=== PATIENT | male | born 1990 | race Caucasian/White ===

== ENCOUNTER 2018-01-23 21:47 | Emergency (ER) | payer BC ==
[~2018-01-23] VITALS: Ht 188 cm; Wt 105.2 kg
[~2018-01-23 21:47] MED LIST: ACET325T21 PO; ALPR0.254 PO; BISA10SU65 PR; DOCU50LI24 PO; ENOX40SY4 SQ; FOLI-17 NG; FURO10VI37 IV; IBUP-1484 PO; IPRA3AMP INLINE; LABE5VIA13 IV; LACT20SO13 NG; LORA2VIA4 IVPush; MERO1VIA15 IV; METH10OR3 PO; METO50TA82 PO; ONDA4VIA4 IVP; OXYC1TAB7 PO; PANT40VI IVPush; POTA20LI PO; QUET25TA PO; SENN8.8S4 NG; THIA100T6 PO; [UNRECOGNIZED DRUG - CODE] PO/NG
[2018-01-23 21:51] VITALS: BP 155/94
[2018-01-23] MEDS ORDERED: HYDROcodone/APAP 5/325 TABLET ONE (22:17)
[2018-01-23] MEDS ORDERED: HYDROcodone/APAP 5/325 TABLET PO PRN (22:30)
== END 2018-01-23 22:51 | disposition home or self-care (01) ==
LOC: ED 22:17
DX: S42.022A Displaced fracture of shaft of left clavicle, initial encounter for closed fracture (principal); W19.XXXA Unspecified fall, initial encounter; Y93.64 Activity, baseball; Y99.8 Other external cause status; Y92.89 Other specified places as the place of occurrence of the external cause
CPT/HCPCS: 29105; 99284

== ENCOUNTER 2018-01-29 05:48 | Day surgery (SDC) | payer BC ==
[~2018-01-29] VITALS: Ht 188 cm; Wt 104.0 kg
[2018-01-29] MEDS ORDERED: BUPIVACAINE/PF-EPI 0.5% 1:200K ONE (06:51)
[2018-01-29] MEDS ORDERED: BUPIVACAINE/PF 0.5% ONE (06:58)
[2018-01-29 06:59] VITALS: BP 144/82
[2018-01-29] MEDS ORDERED: DEXAMETHASONE 4 MG/ML, 1ML ONE ×2 (06:59)
[2018-01-29] MEDS ORDERED: PROPOFOL 10 MG/ML, 20ML ONE (06:59)
[2018-01-29] MEDS ORDERED: CEFAZOLIN 1,000 MG ONE ×2 (06:59)
[2018-01-29] MEDS ORDERED: MIDAZOLAM 1 MG/ML, 2ML ONE (07:00)
[2018-01-29] MEDS ORDERED: FENTANYL PF 250 MCG/5ML ONE (07:00)
[2018-01-29] MEDS ORDERED: OxyconTIN ER 10 MG TAB.ER ONE (07:03)
[2018-01-29] MEDS ORDERED: ACETAMINOPHEN 500 MG TABLET ONE (07:03)
[2018-01-29] MEDS ORDERED: GABAPENTIN 300 MG CAPSULE ONE (07:04)
[2018-01-29] MEDS ORDERED: OXYcodone IR 5MG TABLET ONE (07:06)
[2018-01-29] MEDS ORDERED: LACTATED RINGERS 1,000 ML IV SCH (07:08)
[2018-01-29] MEDS ORDERED: TRAM50TA2 PO (07:10)
[2018-01-29] MEDS ORDERED: MEPERIDINE/PF 25MG/0.5ML IVPush PRN (07:30)
[2018-01-29] MEDS ORDERED: ONDANSETRON 2MG/ML, 2ML IVPush PRN (07:30)
[2018-01-29] MEDS ORDERED: morphine SULFATE 10 MG/ML, 1ML IV PRN (07:30)
[2018-01-29] MEDS ORDERED: PROMETHAZINE 25 MG/ML, 1ML IV PRN (07:30)
[2018-01-29] MEDS ORDERED: LABETALOL 5MG/ML, 20ML IV PRN (07:30)
[2018-01-29] MEDS ORDERED: EPHEDRINE 50 MG/ML, 1ML IVPush PRN (07:30)
[2018-01-29] MEDS ORDERED: ALBUTEROL SULFATE 2.5 MG/3 ML NPPB PRN (07:30)
[2018-01-29] MEDS ORDERED: hydrALAzine 20 MG/ML, 1ML IV PRN (07:30)
[2018-01-29] MEDS ORDERED: METOPROLOL 1 MG/ML, 5ML IV PRN (07:30)
[2018-01-29] MEDS ORDERED: OXYcodone 5 MG/5 ML ORAL.SOL UDC PO PRN (07:30)
[2018-01-29] MEDS ORDERED: FENTANYL PF 100 MCG/2ML IV PRN (07:30)
[2018-01-29] MEDS ORDERED: ONDANSETRON ODT 8 MG ONE ×2 (07:45)
== END 2018-01-29 09:25 | disposition home or self-care (01) ==
LOC: OUT 05:48
PROVIDERS: ATTEND Orthopaedic Surgery
DX: S42.002A Fracture of unspecified part of left clavicle, initial encounter for closed fracture (principal); X58.XXXA Exposure to other specified factors, initial encounter; Z88.1 Allergy status to other antibiotic agents; Z88.0 Allergy status to penicillin; Y93.89 Activity, other specified; Y92.89 Other specified places as the place of occurrence of the external cause; Y99.8 Other external cause status
CPT/HCPCS: 23515; 73000; 76000; C1713; J0690; J1100; J2250; J2704; J3010; J3490; J7120; Q0162

== ENCOUNTER 2020-05-20 09:53 | Day surgery (SDC) | payer BC ==
[~2020-05-20] VITALS: Ht 188 cm; Wt 105.9 kg
[~2020-05-20 09:53] MED LIST changes: +ACET-2274 PO; -ACET325T21 PO; -IBUP-1484 PO; +IBUP-1902 PO; -IPRA3AMP INLINE; +IPRA3AMP30 INLINE; -LORA2VIA4 IVPush; +LORA2VIA6 IVPush; -MERO1VIA15 IV; +MERO1VIA24 IV; +METH10OR12 PO; -METH10OR3 PO; -ONDA4VIA4 IVP; +ONDA4VIA60 IVP; -POTA20LI PO; +POTA20LI2 PO; -QUET25TA PO; +QUET25TA7 PO; -SENN8.8S4 NG; +SENN8.8S5 NG; -THIA100T6 PO; +THIA100T67 PO; +TRAM50TA2 PO
[2020-05-20] MEDS ORDERED: LACTATED RINGERS 1,000 ML IV SCH (10:22)
[2020-05-20] MEDS ORDERED: CHLORHEXIDINE 15 ML UDC MM ONE (10:30)
[2020-05-20 10:36] VITALS: BP 145/99
[2020-05-20] MEDS ORDERED: NO MEDS PER PT (10:49)
[2020-05-20] MEDS ORDERED: FENTANYL PF 250 MCG/5ML ONE (12:38)
[2020-05-20] MEDS ORDERED: PROPOFOL 50 ML ONE (12:38)
[2020-05-20] MEDS ORDERED: MIDAZOLAM 1 MG/ML, 2ML ONE (12:38)
[2020-05-20] MEDS ORDERED: BUPIVACAINE/PF-EPI 0.5% 1:200K ONE (13:23)
[2020-05-20] MEDS ORDERED: ROCURONIUM 10 MG/ML,10ML ONE (13:26)
[2020-05-20] MEDS ORDERED: DEXAMETHASONE 4 MG/ML, 1ML ONE (13:26)
[2020-05-20] MEDS ORDERED: SUCCINYLCHOLINE 20 MG/ML, 10ML ONE (13:26)
[2020-05-20] MEDS ORDERED: CEFAZOLIN PMX 1GM/50ML ONE (13:26)
[2020-05-20] MEDS ORDERED: KETOROLAC 30 MG/1 ML ONE (13:26)
[2020-05-20] MEDS ORDERED: ONDANSETRON 2MG/ML, 2ML ONE (13:26)
[2020-05-20] MEDS ORDERED: PROMETHAZINE 25 MG/ML, 1ML IVPush PRN (14:30)
[2020-05-20] MEDS ORDERED: EPHEDRINE 50 MG/ML, 1ML IM PRN (14:30)
[2020-05-20] MEDS ORDERED: ACETAMINOPHEN 325 MG TABLET PO PRN (14:30)
[2020-05-20] MEDS ORDERED: OXYcodone 5 MG/5 ML ORAL.SOL UDC PO PRN (14:30)
[2020-05-20] MEDS ORDERED: MEPERIDINE/PF 25MG/0.5ML IVPush PRN (14:30)
[2020-05-20] MEDS ORDERED: EPHEDRINE 50 MG/ML, 1ML IVPush PRN (14:30)
[2020-05-20] MEDS ORDERED: DIAZEPAM 5 MG/ML, 2ML IVPush PRN (14:30)
[2020-05-20] MEDS ORDERED: HYDROmorphone 1 MG/ML, 1ML INJ IVPush PRN (14:30)
[2020-05-20] MEDS ORDERED: ONDANSETRON 2MG/ML, 2ML IVPush PRN (14:30)
[2020-05-20] MEDS ORDERED: LABETALOL 5MG/ML, 20ML IV PRN (14:30)
[2020-05-20] MEDS ORDERED: FENTANYL PF 100 MCG/2ML ONE (14:31)
[2020-05-20] MEDS ORDERED: MEPERIDINE/PF 25MG/ML,1ML ONE (14:31)
[2020-05-20] MEDS ORDERED: ACETAMINOPHEN 650 MG/20.3 ML UDC ONE (14:31)
[2020-05-20] MEDS ORDERED: OXYcodone 5 MG/5 ML ORAL.SOL UDC ONE (14:31)
[2020-05-20] MEDS: FENTANYL PF 100 MCG/2ML IV PRN ×2 (14:35→14:48)
[2020-05-20] MEDS ORDERED: DIPHENHYDRAMINE 50 MG/ML, 1ML ONE (15:04)
[2020-05-20] MEDS: DIPHENHYDRAMINE 50 MG/ML, 1ML IVPush PRN (15:06)
== END 2020-05-20 16:15 | disposition home or self-care (01) ==
LOC: OUT 09:53
PROVIDERS: ATTEND Surgery
DX: L05.01 Pilonidal cyst with abscess (principal); Z20.828 Contact with and (suspected) exposure to other viral communicable diseases; I10 Essential (primary) hypertension; Z88.0 Allergy status to penicillin; Z88.1 Allergy status to other antibiotic agents; Z88.2 Allergy status to sulfonamides; Z88.8 Allergy status to other drugs, medicaments and biological substances; Z98.890 Other specified postprocedural states; Z87.891 Personal history of nicotine dependence; Z72.89 Other problems related to lifestyle
CPT/HCPCS: 11770; 36415; 87635; 88304; J0330; J0690; J1100; J1200; J1885; J2175; J2250; J2405; J2704; J3010; J7120